=== PATIENT | female | born 1950 | race Two or more races ===

== ENCOUNTER 2024-12-11 05:25 | Emergency (ER) | payer OTHER ==
[~2024-12-11] VITALS: Ht 152.4 cm; Wt 49.9 kg
[2024-12-11] MEDS ORDERED: AMLODIPINE-OLM1 EAC2 (05:49)
[2024-12-11] MEDS ORDERED: METOPROLOL SUCC50 MG PO (05:49)
== END 2024-12-11 06:54 | disposition home or self-care (01) ==
LOC: ER 05:34
DX: I10 Essential (primary) hypertension (principal); Z88.8 Allergy status to other drugs, medicaments and biological substances